=== PATIENT | female | born 1960 | race Caucasian/White ===

== ENCOUNTER → 2017-01-14 | Outpatient (CLI) | payer MEDICARE, MEDICAID ==
[~2017-01-14] MED LIST: ASPI1TAB PO; BENZ5TA PO; BUSP30TA PO; INVE234I IM; LITH300T2 PO; MAGN250T5 PO; MOME50SP; PROP1TAB29 PO; RISP0.5T3 PO; RISP1TAB41 PO; SENN-23 PO; SENN8.6T10 PO; STOO240C PO; TRAZ50TA4 PO; VITA200016 PO
[2017-01-14 12:52] LABS: ALBUMIN 3.9 GM/DL (3.2-5.2); CALCIUM LEVEL 9.3 MG/DL (8.5-10.1); CREATININE FOR GFR 1.05 MG/DL (0.55-1.02); GLOMERULAR FILTRATION RATE 57.7 (>51); PHOSPHORUS LEVEL 3.3 MG/DL (2.5-4.9); POTASSIUM SERUM 4.4 MEQ/L (3.5-5.1)
[2017-01-14 12:54] LABS: LITHIUM LEVEL 0.92 MEQ/L (0.60-1.20)
== END ==
LOC: M WUC 08:36
PROVIDERS: ATTEND Nurse Practitioner Psychiatric/Mental Health
DX: Z79.899 Other long term (current) drug therapy (principal)

== ENCOUNTER 2017-03-01 11:43 | Outpatient (RCR) | payer MEDICARE, MEDICAID | END 2017-03-03 | disposition home or self-care (01) | LOC: M PT 11:43 | PROVIDERS: ATTEND Family Medicine | DX: Z51.89 Encounter for other specified aftercare (principal); M76.32 Iliotibial band syndrome, left leg | CPT/HCPCS: 97161; G8978; G8979 ==

== ENCOUNTER → 2017-03-21 | Outpatient (CLI) | payer MEDICARE, MEDICAID ==
--- NOTE | 2017-03-21 10:41 | REP ---
Clinical: Abdominal pain and constipation. Findings: Lung bases are clear. Visualized heart and pericardium normal. Chronic linear scarring at the right lower lobe noted. Liver, spleen, pancreas, gallbladder, bilateral adrenal glands and kidneys are normal for noncontrast evaluation. Moderate fecal stasis and presumed constipation noted. Normal terminal ileum and appendix identified in the right lower quadrant. No evidence for bowel obstruction or acute inflammatory process. Pelvis demonstrates normal bladder and age-appropriate uterus/right adnexa. 2.8 cm left ovarian cyst identified. No ascites. No obvious adenopathy. Abdominal aorta without aneurysm. 1 cm fat containing periumbilical hernia. Musculoskeletal structures normal for age. Impression: 1. Moderate fecal stasis and constipation noted without obstruction or acute inflammatory process. 2. 2.8 cm left ovarian cysts. 3. 1 cm fat containing periumbilical hernia. Signed by Avery Radford MD 03/21/2017 10:33 A
== END ==
LOC: M LAB 08:34 → M RAD 08:34
PROVIDERS: ATTEND Student in an Organized Health Care Education/Training Program
DX: K59.00 Constipation, unspecified (principal); N83.202 Unspecified ovarian cyst, left side; K42.9 Umbilical hernia without obstruction or gangrene

== ENCOUNTER 2017-03-22 18:13 | Emergency (ER) | payer MEDICARE, MEDICAID ==
[~2017-03-22] VITALS: Ht 165.1 cm; Wt 79.4 kg
[2017-03-22] MEDS ORDERED: FLEET ENEMA PR PRN (19:45)
[2017-03-22 19:48] VITALS: BP 134/76
== END 2017-03-22 20:00 | disposition home or self-care (01) ==
LOC: M ED 18:53
DX: K59.00 Constipation, unspecified (principal); R11.2 Nausea with vomiting, unspecified; R10.84 Generalized abdominal pain; F32.9 Major depressive disorder, single episode, unspecified; F29 Unspecified psychosis not due to a substance or known physiological condition; Z79.82 Long term (current) use of aspirin; Z79.899 Other long term (current) drug therapy; Z88.2 Allergy status to sulfonamides; Z88.8 Allergy status to other drugs, medicaments and biological substances; Z91.040 Latex allergy status; Z91.09 Other allergy status, other than to drugs and biological substances

== ENCOUNTER → 2017-04-03 | Outpatient (RCR) | payer MEDICARE, MEDICAID | END | disposition home or self-care (01) | LOC: M PT 03-07 12:25 | PROVIDERS: ATTEND Family Medicine | DX: Z51.89 Encounter for other specified aftercare (principal); M76.32 Iliotibial band syndrome, left leg | CPT/HCPCS: 97110; 97140; G8978; G8979 ==

== ENCOUNTER → 2017-04-05 | Outpatient (CLI) | payer MEDICARE, MEDICAID ==
--- NOTE | 2017-04-05 14:56 | REP ---
PELVIC ULTRASOUND: Real-time sonographic evaluation of the pelvis is performed utilizing transabdominal and endovaginal technique. The bladder measures 10.8 x 7.8 x 10.0 cm. The uterus measures 8.6 x 2.3 x 4.8 cm. Endometrial stripe measures 5 mm with no endometrial fluid collection. There may be a subtle oval area of increased echogenicity representing a polyp in the endometrial canal measuring 5 x 3 x 5 mm. There are a few tiny calcifications in the lower uterine segment of the uterus. Right ovary measures 1.0 x 0.7 x 1.2 cm and the left ovary 3.6 x 2.3 x 3.4 cm. There is a small cyst in the left ovary measuring 2.7 x 1.8 x 2.7 cm. There is bilateral blood flow seen in the ovaries with duplex Doppler evaluation, with no torsion, RI right ovary 0.54 and left ovary 0.82. IMPRESSION: Endometrial thickness 5 mm with possible endometrial polyp 5 x 3 x 5 mm. This could be further evaluated with sonohysterography. Small cyst left ovary 2.7 x 1.8 x 2.7 cm. Recommend followup ultrasound in 1 year to confirm stability of the left ovarian cyst. Signed by Viral Ball MD 04/05/2017 04:01 P
== END ==
LOC: M RAD 13:58
PROVIDERS: ATTEND Student in an Organized Health Care Education/Training Program
DX: N83.202 Unspecified ovarian cyst, left side (principal); K59.09 Other constipation; E55.9 Vitamin D deficiency, unspecified; M76.32 Iliotibial band syndrome, left leg

== ENCOUNTER 2017-04-30 12:17 | Outpatient (RCR) | payer MEDICARE, MEDICAID ==
[~2017-04-30 12:17] MED LIST changes: +BENZ0.5T PO; -BENZ5TA PO; -MAGN250T5 PO; +MAGN250T6 PO; -RISP1TAB41 PO; +RISP1TAB42 PO; +SENN1TAB10 PO; -SENN8.6T10 PO; +STOO1CAP9 PO; -STOO240C PO; +TRAZ50TA11 PO; -TRAZ50TA4 PO
[2017-08-02] MEDS ORDERED: FISH1000 PO (12:39)
[2017-08-02] MEDS ORDERED: MIRA33504 PO (12:39)
[2017-08-02] MEDS ORDERED: INVE156I IM (12:39)
[2017-08-02] MEDS ORDERED: VITA100067 PO (12:39)
[2017-08-02] MEDS ORDERED: DULC5TAB PO (12:39)
== END 2017-05-03 | disposition home or self-care (01) ==
LOC: M PT 12:17
PROVIDERS: ATTEND Family Medicine
DX: M76.32 Iliotibial band syndrome, left leg (principal); Z51.89 Encounter for other specified aftercare
CPT/HCPCS: 97110; G8978; G8979; G8980

== ENCOUNTER → 2017-05-20 | Outpatient (CLI) | payer MEDICARE, MEDICAID ==
[~2017-05-20] MED LIST changes: +DULC5TAB PO; +FISH1000 PO; +INVE156I IM; +MIRA33504 PO; +VITA100067 PO
== END ==
LOC: M LAB 11:06
PROVIDERS: ATTEND Student in an Organized Health Care Education/Training Program
DX: E78.00 Pure hypercholesterolemia, unspecified (principal)

== ENCOUNTER → 2017-05-28 | Outpatient (CLI) | payer MEDICARE, MEDICAID ==
--- NOTE | 2017-05-28 14:12 | REPMRS ---
Patient History The patient states she has not had a clinical breast exam in over a year. Patient is postmenopausal and has history of skin cancer at age 21. Family history of breast cancer in maternal aunt at age 50 or over and breast cancer in paternal grandmother at age 50 or over. Benign excisional biopsy of the right breast, December 28, 2015. Digital Woman Screen Mammo: May 28, 2017 - Exam #: [id number] Bilateral CC and MLO view(s) were taken. Technologist: Roma Doherty, Technologist Prior study comparison: July 26, 2015, digital woman screen mammo performed at [facility]. FINDINGS: There are scattered fibroglandular densities. There has been no change in the appearance of the mammogram from the prior studies. There is a mild amount of residual fibroglandular tissue which is fairly symmetric. There is no interval development of dominant mass, architectural distortion, or clustered microcalcification suggestive of malignancy. ASSESSMENT: BI-RADS/ACR category 1 mammogram. Negative. Recommendation Routine screening mammogram in 1 year (for women over age 40). This mammogram was interpreted with the aid of an FDA-approved computer-aided dectection system. Electronically Signed By: Viral Ball MD 05/28/17 [id number]
== END ==
LOC: M WHC 13:01
PROVIDERS: ATTEND Hospitalist
DX: Z12.31 Encounter for screening mammogram for malignant neoplasm of breast (principal); Z78.0 Asymptomatic menopausal state

== ENCOUNTER → 2017-06-10 | Outpatient (CLI) | payer MEDICARE, MEDICAID ==
--- NOTE | 2017-06-10 14:48 | REP ---
PELVIC ULTRASOUND: Real-time sonographic evaluation of pelvis performed utilizing transabdominal and endovaginal technique. Bladder measures 10.5 x 5.7 x 9.0 cm. Uterus measures 7.5 x 3.1 x 5.1 cm. Endometrial thickness is 4 mm with possible polyp again seen within the endometrial cavity 5 mm in maximum diameter. There is no endometrial fluid collection. The right measures 2.6 x 0.7 x 2.1 cm and the left ovary measures approximately 4.0 x 2.8 x 3.8 cm. There is a cystic structure in the left ovary measuring 2.7 x 2.5 x 2.9 cm, essentially unchanged compared to the prior exam. Blood flow is seen in each ovary with duplex Doppler evaluation, with no torsion, RI right ovary 0.78 and left ovary 0.62. Tiny amount of free fluid is seen in the right adnexal region. IMPRESSION: Stable exam with no change since the prior study of 04/05/2017. Signed by Viral Ball MD 06/11/2017 08:42 A
== END ==
LOC: M RAD 13:49
PROVIDERS: ATTEND Obstetrics & Gynecology
DX: N83.202 Unspecified ovarian cyst, left side (principal)

== ENCOUNTER → 2017-06-13 | Outpatient (CLI) | payer MEDICARE, MEDICAID | LOC: M SMT 14:01 | PROVIDERS: ATTEND Obstetrics & Gynecology | DX: Z01.419 Encounter for gynecological examination (general) (routine) without abnormal findings (principal); D39.12 Neoplasm of uncertain behavior of left ovary; Z11.51 Encounter for screening for human papillomavirus (HPV); N95.2 Postmenopausal atrophic vaginitis | CPT/HCPCS: 36415; 86304; 87624; G0123 ==

== ENCOUNTER → 2017-06-26 | Outpatient (CLI) | payer MEDICARE, MEDICAID ==
[2017-06-26 14:04] LABS: BASO # 0.1 K/mm3 (0.0-0.2); BASO % 0.7 % (0.0-1.0); EOS # 0.3 K/mm3 (0.0-0.50); EOS % 3.6 % (0.0-3.0); LARGE UNSTAINED CELL # 0.1 K/mm3 (0.0-0.4); LARGE UNSTAINED CELL % 1.2 % (0.0-4.0); LYMPH # 1.4 K/mm3 (1.5-4.5); LYMPH % 14.8 % (24.0-44.0); MEAN CORPUSCULAR HEMOGLOBIN 29.7 pg (27.0-33.0); MEAN CORPUSCULAR HGB CONC 32.3 g/dl (32.0-36.5); MEAN CORPUSCULAR VOLUME 91.9 fl (80.0-96.0); MONO # 0.5 K/mm3 (0.0-0.8); MONO % 5.8 % (0.0-5.0); NEUTROPHILS # 6.6 K/mm3 (1.8-7.7); NEUTROPHILS % 73.9 % (36.0-66.0); PLATELET COUNT, AUTOMATED 329 k/mm3 (150-450); RED CELL DISTRIBUTION WIDTH 12.8 % (11.5-14.5); WHITE BLOOD COUNT 8.9 K/mm3 (4.0-10.0)
[2017-06-26 14:58] LABS: ALBUMIN 4.1 GM/DL (3.2-5.2); ALBUMIN/GLOBULIN RATIO 1.21 (1.00-1.93); ALKALINE PHOSPHATASE 89 U/L (45-117); ALT/SGPT 15 U/L (12-78); ANION GAP 9 MEQ/L (8-16); AST/SGOT 11 U/L (15-37); BILIRUBIN,TOTAL 0.3 MG/DL (0.2-1.0); BLOOD UREA NITROGEN 11 MG/DL (7-18); CALCIUM LEVEL 9.3 MG/DL (8.5-10.1); CARBON DIOXIDE LEVEL 26 MEQ/L (21-32); CHLORIDE LEVEL 107 MEQ/L (98-107); CREATININE FOR GFR 0.94 MG/DL (0.55-1.02); GLOMERULAR FILTRATION RATE > 60.0 (>51); GLUCOSE, FASTING 83 MG/DL (70-105); POTASSIUM SERUM 4.3 MEQ/L (3.5-5.1); SODIUM LEVEL 142 MEQ/L (136-145); TOTAL PROTEIN 7.5 GM/DL (6.4-8.2)
== END ==
LOC: M LAB 13:28
PROVIDERS: ATTEND Student in an Organized Health Care Education/Training Program
DX: K59.9 Functional intestinal disorder, unspecified (principal)

== ENCOUNTER → 2017-08-09 | Outpatient (REF) | payer MEDICARE, MEDICAID ==
[2017-08-09 16:44] LABS: ANION GAP 7 MEQ/L (8-16); BLOOD UREA NITROGEN 12 MG/DL (7-18); CALCIUM LEVEL 9.7 MG/DL (8.5-10.1); CARBON DIOXIDE LEVEL 26 MEQ/L (21-32); CHLORIDE LEVEL 105 MEQ/L (98-107); CREATININE FOR GFR 0.91 MG/DL (0.55-1.02); GLOMERULAR FILTRATION RATE > 60.0 (>51); GLUCOSE, FASTING 108 MG/DL (70-105); POTASSIUM SERUM 4.1 MEQ/L (3.5-5.1); SODIUM LEVEL 138 MEQ/L (136-145)
[2017-08-09 16:45] LABS: LITHIUM LEVEL 0.78 MEQ/L (0.60-1.20)
== END ==
LOC: M SFHCPLAZ 14:16
DX: F31.30 Bipolar disorder, current episode depressed, mild or moderate severity, unspecified (principal); Z23 Encounter for immunization
CPT/HCPCS: 36415; 80048; 80178; 90471; 90686; G0463

== ENCOUNTER 2017-08-14 10:34 | Day surgery (SDC) | payer MEDICARE, MEDICAID ==
[~2017-08-14] VITALS: Ht 166.4 cm; Wt 77.1 kg
[~2017-08-14 10:34] MED LIST changes: +BSS with VANC/TOB/EPI for EYE CASES IR ONE; +CYCLOPENTOLATE 2% OPHTH SOLN 2ML BTL OS ONE; +LIDOCAINE 3.5 % 1ML OPHTH TOPICAL GEL OU ONE; +MIDAZOLAM INJ 2 MG/2 ML VIAL (J2250) As Ordered ONE; +OFLOXACIN 0.3 % (OCUFLOX) OPTH SOL 5ML OS ONE; +PHENYLEPHRINE 2.5% OPHTH SOL 2ML OS ONE; +TROPICAMIDE 1% OPHTH SOLN 2ML OS ONE; +fentaNYL 100 MCG/2 ML INJECTION (J3010) As Ordered ONE
[2017-08-14] MEDS ORDERED: LR 500 ML IV ONE (10:45)
[2017-08-14] MEDS ORDERED: LIDOCAINE 1% MDV 20ML VIAL SC ONE (10:45)
[2017-08-14] MEDS ORDERED: HEALON DUET (HEALON 10MG/ML 0.55ML & HEALON ENDOCOAT 30MG/ML 0.85ML) As Ordered ONE (12:02)
[2017-08-14] MEDS ORDERED: TRIAMCINOLONE PRES FR 40 MG/ML 1ML(TRIESENCE)(OR EYE ONLY)(J3300 PER 1MG) As Ordered ONE (12:02)
[2017-08-14] MEDS ORDERED: MOXIFLOXACIN IN BSS 0.25MG/0.25ML INTRACAMERAL INJ (OR EYE ONLY)(J2280) As Ordered ONE (12:02)
[2017-08-14] MEDS ORDERED: LIDOCAINE 1% SDV 5 ML VIAL As Ordered ONE (12:02)
[2017-08-14 14:00] VITALS: BP 121/72
--- NOTE | 2017-08-14 22:11 | RO ---
DATE OF PROCEDURE: 08/14/2017 PREPROCEDURE DIAGNOSIS: Cataract of left eye. POSTPROCEDURE DIAGNOSIS: Cataract of left eye. PROCEDURE: Femtosecond laser and phacoemulsification of the intraocular lens with lens implantation left eye. Intraocular lens used was Hoya, model 250, power 12 diopters. SURGEON: Joey Martin MD MAIL LIST PROCESSOR: None. ANESTHESIA: Local IV standby. FINDINGS: Cataract of left eye. COMPLICATIONS: None. DESCRIPTION OF PROCEDURE: The patient was brought to the operating room and laid in supine position. A lid speculum was placed, and patient was brought under the femtosecond laser. After the satisfactory placement of the patient interface, primary incision, secondary incision, and arcuate incisions with lens fragmentation was done without any complication per plan. The patients interface was then removed and lid speculum removed. Patient was placed under the microscope. The eye was prepped and draped in a sterile fashion for ophthalmic surgery. Lid speculum was placed. The secondary incision was opened, and EndoCoat was injected into the anterior chamber. The temporal clear corneal incision was then opened and capsulorrhexis removed, followed by hydrodissection. This was followed by phacoemulsification of the lens within the capsular bag. Cortical material was then aspirated, and Healon was injected into the capsular bag. Intraocular lens was then placed. Excess Healon was aspirated. Wound was hydrated. The lid speculum was removed, and patient was returned to the recovery room in stable condition.
== END 2017-08-14 14:05 | disposition home or self-care (01) ==
LOC: M SDC 10:34
PROVIDERS: ATTEND Ophthalmology
DX: H26.9 Unspecified cataract (principal); K59.00 Constipation, unspecified; R19.7 Diarrhea, unspecified; A60.00 Herpesviral infection of urogenital system, unspecified; C44.90 Unspecified malignant neoplasm of skin, unspecified; F41.9 Anxiety disorder, unspecified; F31.9 Bipolar disorder, unspecified; G43.909 Migraine, unspecified, not intractable, without status migrainosus; F29 Unspecified psychosis not due to a substance or known physiological condition; Z88.2 Allergy status to sulfonamides; Z88.8 Allergy status to other drugs, medicaments and biological substances; Z91.040 Latex allergy status; Z91.048 Other nonmedicinal substance allergy status; Z79.899 Other long term (current) drug therapy; Z79.82 Long term (current) use of aspirin
CPT/HCPCS: 66984; J2250; J2280; J3010; J3300; V2632

== ENCOUNTER 2017-09-11 07:56 | Day surgery (SDC) | payer MEDICARE, MEDICAID ==
[~2017-09-11] VITALS: Ht 165.1 cm; Wt 75.7 kg
[~2017-09-11 07:56] MED LIST changes: -BSS with VANC/TOB/EPI for EYE CASES IR ONE; -CYCLOPENTOLATE 2% OPHTH SOLN 2ML BTL OS ONE; -LIDOCAINE 3.5 % 1ML OPHTH TOPICAL GEL OU ONE; -MIDAZOLAM INJ 2 MG/2 ML VIAL (J2250) As Ordered ONE; -OFLOXACIN 0.3 % (OCUFLOX) OPTH SOL 5ML OS ONE; -PHENYLEPHRINE 2.5% OPHTH SOL 2ML OS ONE; -TROPICAMIDE 1% OPHTH SOLN 2ML OS ONE; -fentaNYL 100 MCG/2 ML INJECTION (J3010) As Ordered ONE
[2017-09-11] MEDS ORDERED: PROPOFOL 200 MG/20 ML VIAL As Ordered ONE ×2 (08:03→09:18)
[2017-09-11] MEDS ORDERED: LIDOCAINE 2% INJ 100 MG/5 ML SDV (FOR ANES.) As Ordered ONE (08:03)
[2017-09-11] MEDS ORDERED: NS 1,000 ML IV ONE (08:15)
--- NOTE | 2017-09-11 09:32 | ROOR ---
Patient Name: Chey Elaine Procedure Date: 09/11/2017 9:02 AM Date of : 1960 Age: 56 Room: [facility] Gender: Female Note Status: Finalized Procedure: Total Colonoscopy to cecum + Biopsy Polypectomy Indications: Screening for colorectal malignant neoplasm Providers: Nick Márquez MD Referring MD: Mehran Garcia Requesting Provider: Medicines: Monitored Anesthesia Care Complications: No immediate complications. Procedure: Pre-Anesthesia Assessment: - The heart rate, respiratory rate, oxygen saturations, blood pressure, adequacy of pulmonary ventilation, and response to care were monitored throughout the procedure. The Colonoscope was introduced through the anus and advanced to the cecum, identified by appendiceal orifice and ileocecal valve. The colonoscopy was performed without difficulty. The patient tolerated the procedure well. The quality of the bowel preparation was good. Findings: The perianal and digital rectal examinations were normal. Non-bleeding internal hemorrhoids were found during retroflexion. The hemorrhoids were Grade I (internal hemorrhoids that do not prolapse). Scattered small-mouthed diverticula were found in the recto-sigmoid colon, sigmoid colon and descending colon. A small polyp was found in the ascending colon. The polyp was sessile. The polyp was removed with a jumbo cold forceps. Resection and retrieval were complete. The exam was otherwise without abnormality on direct and retroflexion views. Impression: - Non-bleeding internal hemorrhoids. - Diverticulosis in the recto-sigmoid colon, in the sigmoid colon and in the descending colon. - One small polyp in the ascending colon, removed with a jumbo cold forceps. Resected and retrieved. - The examination was otherwise normal on direct and retroflexion views. - The exam was otherwise normal to the cecum. Recommendation: - Patient has a contact number available for emergencies. The signs and symptoms of potential delayed complications were discussed with the patient. Return to normal activities tomorrow. Written discharge instructions were provided to the patient. - High fiber diet. - Discharge patient to home. - Continue present medications. - Await pathology results. - Telephone GI clinic for pathology results in 1 week. - Repeat colonoscopy in 10 years for screening purposes. - Return to referring physician. - The findings and recommendations were discussed with the patient's family. Nick Márquez MD Nick Márquez MD 09/11/2017 9:31:39 AM This report has been signed electronically. Number of Addenda: 0 Note Initiated On: 09/11/2017 9:02 AM Estimated Blood Loss: Estimated blood loss: none.
[2017-09-11 09:43] VITALS: BP 133/74
== END 2017-09-11 10:12 | disposition home or self-care (01) ==
LOC: M OPP 07:56
PROVIDERS: ATTEND Internal Medicine Gastroenterology
DX: Z12.11 Encounter for screening for malignant neoplasm of colon (principal); D12.2 Benign neoplasm of ascending colon; K64.0 First degree hemorrhoids; K57.30 Diverticulosis of large intestine without perforation or abscess without bleeding; K59.00 Constipation, unspecified; L85.3 Xerosis cutis; F41.9 Anxiety disorder, unspecified; F31.9 Bipolar disorder, unspecified; Z78.0 Asymptomatic menopausal state; Z85.828 Personal history of other malignant neoplasm of skin; Z88.2 Allergy status to sulfonamides; Z88.8 Allergy status to other drugs, medicaments and biological substances; Z91.040 Latex allergy status; Z88.3 Allergy status to other anti-infective agents; Z79.82 Long term (current) use of aspirin; Z79.899 Other long term (current) drug therapy; Z80.1 Family history of malignant neoplasm of trachea, bronchus and lung; Z80.3 Family history of malignant neoplasm of breast

== ENCOUNTER → 2017-12-30 | Outpatient (CLI) | payer MEDICARE, MEDICAID ==
[2017-12-30 09:31] LABS: CHOLESTEROL LEVEL 196 MG/DL (<200); CHOLESTEROL RISK RATIO 2.512 (<5); HDL CHOLESTEROL 78 MG/DL (>40); LDL CHOLESTEROL 100.6 MG/DL (<100); NON-HDL-C 118 MG/DL; TRIGLYCERIDES LEVEL 87 MG/DL (<150)
[2017-12-30 09:54] LABS: ESTIMATED AVERAGE GLUCOSE 100 MG/DL (60-110); HEMOGLOBIN A1c 5.1 %
[2017-12-30 10:17] LABS: PROLACTIN 197.3 NG/ML
== END ==
LOC: M LAB 08:21
DX: Z51.81 Encounter for therapeutic drug level monitoring (principal); Z79.899 Other long term (current) drug therapy

== ENCOUNTER → 2017-12-30 | Outpatient (CLI) | payer MEDICARE, MEDICAID ==
[2017-12-30 09:35] LABS: LITHIUM LEVEL 1.47 MEQ/L (0.60-1.20)
[2017-12-30 09:38] LABS: TOTAL 25(OH) VITAMIN D 41.2 NG/ML (30.0-100.0)
[2017-12-30 09:55] LABS: ESTIMATED AVERAGE GLUCOSE 105 MG/DL (60-110); HEMOGLOBIN A1c 5.3 %
== END ==
LOC: M LAB 08:18
DX: F31.9 Bipolar disorder, unspecified (principal); E55.9 Vitamin D deficiency, unspecified; Z51.81 Encounter for therapeutic drug level monitoring; Z79.899 Other long term (current) drug therapy
CPT/HCPCS: 80178

== ENCOUNTER → 2018-02-17 | Outpatient (CLI) | payer MEDICARE, MEDICAID ==
[2018-02-17 10:58] LABS: LITHIUM LEVEL 1.01 MEQ/L (0.60-1.20)
== END ==
LOC: M LAB 09:52
DX: Z51.81 Encounter for therapeutic drug level monitoring (principal); Z79.899 Other long term (current) drug therapy
CPT/HCPCS: 80178

== ENCOUNTER → 2018-06-16 | Outpatient (CLI) | payer MEDICARE, MEDICAID ==
[2018-06-16 09:37] LABS: HEMATOCRIT 38.7 % (36.0-47.0); HEMOGLOBIN 12.6 g/dl (12.0-15.5); MEAN CORPUSCULAR HEMOGLOBIN 29.5 pg (27.0-33.0); MEAN CORPUSCULAR HGB CONC 32.6 g/dl (32.0-36.5); MEAN CORPUSCULAR VOLUME 90.6 fl (80.0-96.0); PLATELET COUNT, AUTOMATED 320 10^3/uL (150-450); RED BLOOD COUNT 4.27 10^6/uL (4.00-5.40); RED CELL DISTRIBUTION WIDTH 12.5 % (11.5-14.5); WHITE BLOOD COUNT 8.8 10^3/uL (4.0-10.0)
[2018-06-16 11:15] LABS: ALBUMIN 3.8 GM/DL (3.2-5.2); ALBUMIN/GLOBULIN RATIO 1.12 (1.00-1.93); ALKALINE PHOSPHATASE 83 U/L (45-117); ALT/SGPT 18 U/L (12-78); ANION GAP 6 MEQ/L (8-16); AST/SGOT 14 U/L (7-37); BILIRUBIN,TOTAL 0.4 MG/DL (0.2-1.0); BLOOD UREA NITROGEN 13 MG/DL (7-18); CALCIUM LEVEL 9.7 MG/DL (8.5-10.1); CARBON DIOXIDE LEVEL 27 MEQ/L (21-32); CHLORIDE LEVEL 110 MEQ/L (98-107); CHOLESTEROL LEVEL 209 MG/DL (<200); CHOLESTEROL RISK RATIO 3.166 (<5); CREATININE FOR GFR 1.17 MG/DL (0.55-1.30); GLOMERULAR FILTRATION RATE 50.8 (>51); GLUCOSE, FASTING 117 MG/DL (70-100); HDL CHOLESTEROL 66 MG/DL (>40); NON-HDL-C 143 MG/DL; PHOSPHORUS LEVEL 3.4 MG/DL (2.5-4.9); POTASSIUM SERUM 4.3 MEQ/L (3.5-5.1); SODIUM LEVEL 143 MEQ/L (136-145); TOTAL PROTEIN 7.2 GM/DL (6.4-8.2); TRIGLYCERIDES LEVEL 165 MG/DL (<150)
[2018-06-16 11:30] LABS: LITHIUM LEVEL 0.97 MEQ/L (0.60-1.20)
== END ==
LOC: M LAB 08:54
DX: Z79.899 Other long term (current) drug therapy (principal)
CPT/HCPCS: 80178

== ENCOUNTER → 2018-08-25 | Outpatient (CLI) | payer MEDICARE, MEDICAID ==
[2018-08-25 12:42] LABS: ANION GAP 6 MEQ/L (8-16); BLOOD UREA NITROGEN 16 MG/DL (7-18); CARBON DIOXIDE LEVEL 25 MEQ/L (21-32); CHLORIDE LEVEL 110 MEQ/L (98-107); CREATININE FOR GFR 1.03 MG/DL (0.55-1.30); GLOMERULAR FILTRATION RATE 58.8 (>51); GLUCOSE, FASTING 96 MG/DL (70-100); POTASSIUM SERUM 4.5 MEQ/L (3.5-5.1); SODIUM LEVEL 141 MEQ/L (136-145)
== END ==
LOC: M LAB 11:29
DX: R73.09 Other abnormal glucose (principal)
CPT/HCPCS: 80048

== ENCOUNTER → 2018-11-24 | Outpatient (CLI) | payer MEDICARE, MEDICAID ==
[~2018-11-24] MED LIST changes: -PROP1TAB29 PO; +PROP20TA72 PO; +TRAZ-160 PO; -TRAZ50TA11 PO
[2018-11-24 11:26] LABS: CHOLESTEROL RISK RATIO 2.942 (<5); LITHIUM LEVEL 0.94 MEQ/L (0.60-1.20); THYROID STIMULATING HORMONE 2.32 uIU/ML (0.358-3.740)
[2018-11-24 11:28] LABS: PROLACTIN 149.2 NG/ML; TOTAL 25(OH) VITAMIN D 29.9 NG/ML (30.0-100.0)
[2018-11-24 11:30] LABS: HEMOGLOBIN A1c 5.1 %
== END ==
LOC: M LAB 10:24
PROVIDERS: ATTEND Nurse Practitioner Psychiatric/Mental Health
DX: Z79.899 Other long term (current) drug therapy (principal)
CPT/HCPCS: 36415; 80061; 80178; 82306; 83036; 84146; 84443; 90471; 90715; G0463

== ENCOUNTER → 2018-12-18 | Outpatient (CLI) | payer MEDICARE, MEDICAID ==
[~2018-12-18] MED LIST changes: +PROHANCE 279.3MG/ML 15ML VIAL (A9576) As Ordered ONE
--- NOTE | 2018-12-18 14:42 | REP ---
MR BRAIN WITHOUT AND WITH CONTRAST: HISTORY: Hyperprolactinemia. CONTRAST: ProHance 7 mL. There are no areas of abnormal signal intensity in the brain. There is no intraparenchymal hemorrhage, infarct, mass, or midline shift. There is no abnormal enhancement. The ventricular system is normal in appearance. There is no extracerebral collection. The pituitary gland is normal in size and signal intensity. The pituitary gland measures 7 mm in height. There is homogeneous enhancement with contrast. The infundibulum is midline. The cavernous sinuses, optic chiasm, and hypothalamus are normal in appearance. The sinuses are clear. IMPRESSION: There is no intracranial lesion. Electronically Signed by Tom Romano MD 12/18/2018 02:44 P
== END ==
LOC: M RAD 11:48
PROVIDERS: ATTEND Student in an Organized Health Care Education/Training Program
DX: E22.1 Hyperprolactinemia (principal)
CPT/HCPCS: 70553; A9576

== ENCOUNTER → 2019-06-08 | Outpatient (CLI) | payer MEDICARE, MEDICAID ==
[~2019-06-08] MED LIST changes: -ASPI1TAB PO; +ASPI81TA26 PO; -BENZ0.5T PO; +BENZ0.5T23 PO; -PROHANCE 279.3MG/ML 15ML VIAL (A9576) As Ordered ONE; -TRAZ-160 PO; +TRAZ-252 PO
[2019-06-08 10:40] LABS: HEMOGLOBIN A1c 5.4 %
[2019-06-08 10:47] LABS: ALBUMIN 3.7 GM/DL (3.2-5.2); CALCIUM LEVEL 9.5 MG/DL (8.5-10.1); CHOLESTEROL RISK RATIO 2.936 (<5); CREATININE FOR GFR 1.09 MG/DL (0.55-1.30); GLOMERULAR FILTRATION RATE 54.9 (>51); LITHIUM LEVEL 1.01 MEQ/L (0.60-1.20); PHOSPHORUS LEVEL 3.6 MG/DL (2.5-4.9); POTASSIUM SERUM 4.4 MEQ/L (3.5-5.1); THYROID STIMULATING HORMONE 1.76 uIU/ML (0.358-3.740)
[2019-06-08 11:52] LABS: TOTAL 25(OH) VITAMIN D 35.5 NG/ML (30.0-100.0)
[2019-06-08 11:53] LABS: PROLACTIN 162.5 NG/ML
== END ==
LOC: M LAB 09:36
PROVIDERS: ATTEND Nurse Practitioner Psychiatric/Mental Health
DX: Z79.899 Other long term (current) drug therapy (principal)

== ENCOUNTER → 2019-06-23 | Outpatient (REF) | payer MEDICARE, MEDICAID ==
[2019-06-26 14:50] LABS: HPV HYBRID CAPTURE II Negative (Negative)
== END ==
LOC: M LAB REF 19:36
PROVIDERS: ATTEND Obstetrics & Gynecology
DX: Z12.4 Encounter for screening for malignant neoplasm of cervix (principal)
CPT/HCPCS: 36415; 86304; 87624; G0123

== ENCOUNTER → 2019-06-23 | Outpatient (CLI) | payer MEDICARE, MEDICAID | LOC: M SMT 15:28 | PROVIDERS: ATTEND Obstetrics & Gynecology | DX: D39.12 Neoplasm of uncertain behavior of left ovary (principal) ==

== ENCOUNTER → 2019-07-28 | Outpatient (CLI) | payer MEDICARE, MEDICAID ==
--- NOTE | 2019-07-28 14:54 | REPMRS ---
Patient History The patient states she has not had a clinical breast exam in over a year. Patient is postmenopausal, has history of other cancer at age 21, and had first child at age 32. Family history of breast cancer at age 50 or over in maternal aunt, breast cancer at age 50 or over in paternal grandmother. Benign excisional biopsy of the right breast, December 28, 2015. 3D TOMOSYNTHESIS WAS PERFORMED. The [facility] lifetime risk for breast cancer is 19.7%. Digital Woman Screen Mammo: July 28, 2019 - Exam #: [id number] Bilateral CC and MLO view(s) were taken. Technologist: Padmini Hobbs, Technologist Prior study comparison: July 03, 2018, bilateral digital woman screen mammo performed at [facility]. May 28, 2017, digital woman screen mammo performed at [facility]. FINDINGS: The breast tissue is heterogeneously dense. This may lower the sensitivity of mammography. There has been no change in the appearance of the mammogram from the prior studies. There is a moderate amount of residual fibroglandular tissue which is fairly symmetric. There is no interval development of dominant mass, areas of architectural distortion, or clustered microcalcification typical of malignancy. Assessment: BI-RADS/ACR category 1 mammogram. Negative Mammogram. Recommendation Routine screening mammogram in 1 year (for women over age 40). This mammogram was interpreted with the aid of an FDA-approved computer-aided dectection system. Electronically Signed By: Viral Ball MD 07/28/19 [id number]
--- NOTE | 2019-07-30 15:44 | DEXA ---
AP SPINE L1 - L4 1.205 0.1 1.2 LT FEMUR TOTAL 1.063 0.4 1.3 LT NECK 0.972 -0.5 0.7 RT FEMUR TOTAL 1.012 0.0 0.9 RT NECK 0.948 -0.6 0.5 TOTAL BODY TOTAL OTHER COMMENTS: Normal bone densitometry of the spine and hips. FOLLOW-UP: Recommendation for the next bone density exam: 5 years. MERRY
== END ==
LOC: M WHC 13:57
PROVIDERS: ATTEND Student in an Organized Health Care Education/Training Program
DX: Z12.31 Encounter for screening mammogram for malignant neoplasm of breast (principal); E22.1 Hyperprolactinemia; Z78.0 Asymptomatic menopausal state; Z85.9 Personal history of malignant neoplasm, unspecified

== ENCOUNTER → 2019-08-27 | Outpatient (CLI) | payer MEDICARE, MEDICAID ==
--- NOTE | 2019-08-27 16:52 | REP ---
HISTORY: Left ovarian cyst was seen on prior exam of 07/03/2018. The cyst measured 2.9 cm. The patient complains of pelvic pain today. Secondary to the patient's complaints of pelvic pain bilateral ovarian Doppler was obtained. This is a transvesical exam only. There was no transvaginal imaging. The uterus is essentially unchanged in size, shape and echo pattern and today measures 8.2 x 3.4 x 4.7 cm. The endometrial echo complex is within normal limits measuring 5 mm in its greatest thickness. The right ovary measured 2.5 x 1.8 x 2.2 cm and is within normal limits with an RI of 0.35. The left ovary measures 4.1 x 2.7 x 3.9 cm. In the substance of the left ovary there is a 3.3 x 2.1 x 3.2 cm sized anechoic structure which exhibits posterior wall enhancement and increased through transmission. This is consistent with a simple cyst. The left ovarian RI is 0.4. The urinary bladder measures 10 x 7 x 9 cm. IMPRESSION: Left ovarian cyst as described above. A 2 month followup examination is recommended to ensure resolution. Electronically Signed by Bernardo Adhikari DO 08/27/2019 04:59 P
== END ==
LOC: M RAD 12:36
PROVIDERS: ATTEND Obstetrics & Gynecology
DX: N83.202 Unspecified ovarian cyst, left side (principal); D39.12 Neoplasm of uncertain behavior of left ovary

== ENCOUNTER → 2019-10-23 | Outpatient (CLI) | payer MEDICARE, MEDICAID ==
[2019-10-23 11:54] LABS: HEMATOCRIT 38.9 % (36.0-47.0); HEMOGLOBIN 12.1 g/dl (12.0-15.5); MEAN CORPUSCULAR HEMOGLOBIN 29.2 pg (27.0-33.0); MEAN CORPUSCULAR HGB CONC 31.1 g/dl (32.0-36.5); PLATELET COUNT, AUTOMATED 329 10^3/uL (150-450); RED BLOOD COUNT 4.14 10^6/uL (4.00-5.40); WHITE BLOOD COUNT 7.7 10^3/uL (4.0-10.0)
[2019-10-23 12:13] LABS: HEMOGLOBIN A1c 5.6 %
[2019-10-23 12:32] LABS: ALT/SGPT 17 U/L (12-78); BILIRUBIN,TOTAL 0.4 MG/DL (0.2-1.0); BLOOD UREA NITROGEN 12 MG/DL (7-18); CALCIUM LEVEL 9.7 MG/DL (8.5-10.1); CARBON DIOXIDE LEVEL 26 MEQ/L (21-32); CHLORIDE LEVEL 108 MEQ/L (98-107); CREATININE FOR GFR 0.97 MG/DL (0.55-1.30); GLOMERULAR FILTRATION RATE > 60.0 (>51); GLUCOSE, FASTING 100 MG/DL (70-100); LITHIUM LEVEL 0.92 MEQ/L (0.60-1.20); PHOSPHORUS LEVEL 3.4 MG/DL (2.5-4.9); POTASSIUM SERUM 4.1 MEQ/L (3.5-5.1); PROLACTIN 111.9 NG/ML; SODIUM LEVEL 139 MEQ/L (136-145); THYROXINE (T4) 7.3 UG/DL (4.5-12.0); TOTAL 25(OH) VITAMIN D 39.2 NG/ML (30.0-100.0); TOTAL PROTEIN 7.1 GM/DL (6.4-8.2); TOTAL T3 96.1 NG/DL (60.0-181.0)
== END ==
LOC: M LAB 11:06
PROVIDERS: ATTEND Nurse Practitioner Psychiatric/Mental Health
DX: Z79.899 Other long term (current) drug therapy (principal); F31.9 Bipolar disorder, unspecified

== ENCOUNTER → 2020-01-08 | Outpatient (REF) | payer MEDICARE, MEDICAID ==
[2020-01-11 11:07] LABS: HEPATITIS B SURFACE ANTIBODY NEGATIVE (POSITIVE); HEPATITIS B SURFACE ANTIGEN NEGATIVE (NEGATIVE); HEPATITIS C VIRUS ABY INDEX < 0.0 INDEX (<0.8)
== END ==
LOC: M SFHCPLAZ 12:45
PROVIDERS: ATTEND Family Medicine
DX: A09 Infectious gastroenteritis and colitis, unspecified (principal); Z23 Encounter for immunization; Z29.8 Encounter for other specified prophylactic measures
CPT/HCPCS: 86704; 86706; 86803; 87340; 90471; 90632; 90713; G0463

== ENCOUNTER → 2020-05-09 | Outpatient (REF) | payer MEDICARE, MEDICAID ==
[2020-05-09 12:01] LABS: CHOLESTEROL RISK RATIO 3.677 (<5)
[2020-05-09 17:06] LABS: LITHIUM LEVEL 0.66 MEQ/L (0.60-1.20)
[2020-05-09 19:12] LABS: HEMOGLOBIN A1c 5.6 %
== END ==
LOC: M SFHCPLAZ 09:26
PROVIDERS: ATTEND Family Medicine
DX: Z13.220 Encounter for screening for lipoid disorders (principal); Z13.1 Encounter for screening for diabetes mellitus; Z51.81 Encounter for therapeutic drug level monitoring; E78.00 Pure hypercholesterolemia, unspecified

== ENCOUNTER → 2020-09-08 | Outpatient (CLI) | payer MEDICARE, MEDICAID ==
--- NOTE | 2020-09-08 14:48 | REPMRS ---
Patient History The patient states she has not had a clinical breast exam in over a year. Family history of breast cancer at age 50 or over in maternal aunt, breast cancer at age 50 or over in paternal grandmother. Benign excisional biopsy of the right breast, December 28, 2015. 3D TOMOSYNTHESIS WAS PERFORMED. The [facility] lifetime risk for breast cancer is 19.1%. Volpara breast density b. Digital Woman Screen Mammo: September 08, 2020 - Exam #: [id number] Bilateral CC and MLO view(s) were taken. Technologist: Yumiko Cobb Technologist Prior study comparison: July 28, 2019, bilateral digital woman screen mammo performed at [facility]. July 03, 2018, bilateral digital woman screen mammo performed at [facility]. FINDINGS: There are scattered fibroglandular densities. There has been no change in the appearance of the mammogram from the prior studies. There is a mild amount of residual fibroglandular tissue which is fairly symmetric. There is no interval development of dominant mass, architectural distortion, or clustered microcalcification suggestive of malignancy. Assessment: BI-RADS/ACR category 1 mammogram. Negative Mammogram. Recommendation Routine screening mammogram in 1 year (for women over age 40). This mammogram was interpreted with the aid of an FDA-approved computer-aided dectection system. Electronically Signed By: Viral Ball MD 09/08/20 [id number]
== END ==
LOC: M WHC 12:51
PROVIDERS: ATTEND Family Medicine
DX: Z12.31 Encounter for screening mammogram for malignant neoplasm of breast (principal); N64.89 Other specified disorders of breast; Z80.3 Family history of malignant neoplasm of breast

== ENCOUNTER → 2020-11-01 | Outpatient (REF) | payer MEDICARE, MEDICAID ==
[~2020-11-01] MED LIST changes: +RISP-7 PO; -RISP0.5T3 PO; -STOO1CAP9 PO; +STOO240C PO
[2020-11-01 16:24] LABS: CALCIUM LEVEL 9.7 MG/DL (8.8-10.2); CREATININE FOR GFR 1.21 MG/DL (0.55-1.30); GLOMERULAR FILTRATION RATE 48.3 (>45); LITHIUM LEVEL 0.84 MEQ/L (0.60-1.20); POTASSIUM SERUM 4.6 MEQ/L (3.5-5.1)
== END ==
LOC: M SFHCPLAZ 14:32
PROVIDERS: ATTEND Family Medicine
DX: F31.9 Bipolar disorder, unspecified (principal)
CPT/HCPCS: 36415; 80048; 80178; G0463

== ENCOUNTER → 2020-12-13 | Outpatient (CLI) | payer MEDICARE, MEDICAID ==
[2020-12-13 14:42] LABS: ALBUMIN 4.2 GM/DL (3.2-5.2); BILIRUBIN,TOTAL 0.3 MG/DL (0.2-1.0); CALCIUM LEVEL 9.7 MG/DL (8.8-10.2); CHOLESTEROL RISK RATIO 3.292 (<5); CREATININE FOR GFR 1.16 MG/DL (0.55-1.30); GLOMERULAR FILTRATION RATE 50.7 (>45); LITHIUM LEVEL 0.79 MEQ/L (0.60-1.20); PHOSPHORUS LEVEL 3.7 MG/DL (2.5-4.9); POTASSIUM SERUM 4.5 MEQ/L (3.5-5.1); THYROID STIMULATING HORMONE 2.57 uIU/ML (0.358-3.740); TOTAL PROTEIN 7.2 GM/DL (6.4-8.2)
[2020-12-13 15:33] LABS: HEMATOCRIT 39.1 % (36.0-47.0); MEAN CORPUSCULAR HEMOGLOBIN 28.6 pg (27.0-33.0); MEAN CORPUSCULAR HGB CONC 30.7 g/dl (32.0-36.5); MEAN CORPUSCULAR VOLUME 93.1 fl (80.0-96.0); PLATELET COUNT, AUTOMATED 350 10^3/uL (150-450); WHITE BLOOD COUNT 9.3 10^3/uL (4.0-10.0)
[2020-12-13 15:39] LABS: TOTAL 25(OH) VITAMIN D 38.4 NG/ML (30.0-100.0)
== END ==
LOC: M PLALAB 10:38
PROVIDERS: ATTEND Nurse Practitioner Psychiatric/Mental Health
DX: F31.9 Bipolar disorder, unspecified (principal); Z79.899 Other long term (current) drug therapy

== ENCOUNTER → 2020-12-30 | Outpatient (CLI) | payer MEDICARE, MEDICAID ==
--- NOTE | 2020-12-30 14:23 | REP ---
INDICATION: N83.202 LT OVARIAN CYST. COMPARISON: Comparison pelvic sonography August 27, 2019.. TECHNIQUE: Transabdominal scanning is performed. Patient declined transvaginal imaging. Exam quality was inhibited some degree by overlying bowel gas. FINDINGS: Uterine dimensions are normal at 8.4 x 3.2 x 4.7 cm. Endometrial echo is 0.4 cm thick and centrally placed. No free fluid is seen in the cul-de-sac. Visualized bladder pete are smooth. Uterine texture is somewhat heterogeneous. Visualized urinary bladder pete are smooth. Calculated bladder volume 197 mL. The right ovary has dimensions of 2.8 x 0.7 x 1.8 cm. The left ovary dimensions are normal as well at 0.9 x 0.6 x 1.2 cm. No evidence of ovarian cyst today. IMPRESSION: No abnormality noted.. <Electronically signed by Phong Haile > 12/30/20 [id number]
== END ==
LOC: M WHC 10:48
PROVIDERS: ATTEND Obstetrics & Gynecology
DX: Z87.42 Personal history of other diseases of the female genital tract (principal)

== ENCOUNTER → 2021-07-04 | Outpatient (CLI) | payer MEDICARE, MEDICAID ==
[2021-07-04 14:05] LABS: HEMOGLOBIN A1c 5.5 %
[2021-07-04 14:15] LABS: CHOLESTEROL RISK RATIO 2.5 (<5); LITHIUM LEVEL 0.66 MEQ/L (0.60-1.20)
== END ==
LOC: M PLALAB 10:46
PROVIDERS: ATTEND Family Medicine
DX: Z13.1 Encounter for screening for diabetes mellitus (principal); E55.9 Vitamin D deficiency, unspecified; F31.9 Bipolar disorder, unspecified; Z13.220 Encounter for screening for lipoid disorders; Z79.899 Other long term (current) drug therapy

== ENCOUNTER → 2022-07-24 | Outpatient (CLI) | payer MEDICARE, MEDICAID ==
[~2022-07-24] MED LIST changes: -MOME50SP; +NASO50SP3
[2022-07-24 14:22] LABS: HEMOGLOBIN A1c 5.4 %
[2022-07-24 14:59] LABS: CREATININE FOR GFR 1.03 MG/DL (0.55-1.30)
[2022-07-24 15:00] LABS: ALBUMIN 4.3 GM/DL (3.2-5.2); BILIRUBIN,TOTAL 0.5 MG/DL (0.2-1.0); CHOLESTEROL RISK RATIO 3.028 (<5); LITHIUM LEVEL 0.47 MEQ/L (0.60-1.20); THYROID STIMULATING HORMONE 1.64 uIU/ML (0.358-3.740); TOTAL PROTEIN 7.7 GM/DL (6.4-8.2)
[2022-07-24 15:24] LABS: PROLACTIN 86.5 NG/ML
== END ==
LOC: M PLALAB 10:41
PROVIDERS: ATTEND Student in an Organized Health Care Education/Training Program
DX: E55.9 Vitamin D deficiency, unspecified (principal); F31.9 Bipolar disorder, unspecified; E22.1 Hyperprolactinemia; Z13.220 Encounter for screening for lipoid disorders; Z13.29 Encounter for screening for other suspected endocrine disorder; Z13.1 Encounter for screening for diabetes mellitus; Z79.899 Other long term (current) drug therapy

== ENCOUNTER → 2022-10-12 | Outpatient (CLI) | payer MEDICARE, MEDICAID | LOC: M WHC 14:04 | PROVIDERS: ATTEND Student in an Organized Health Care Education/Training Program | DX: Z12.31 Encounter for screening mammogram for malignant neoplasm of breast (principal) ==

== ENCOUNTER → 2023-04-03 | Outpatient (CLI) | payer MEDICARE, MEDICAID ==
[~2023-04-03] MED LIST changes: +BENZ0.5T2 PO; -BENZ0.5T23 PO
[2023-04-03 13:30] LABS: HEMATOCRIT 34.4 % (36.0-47.0); HEMOGLOBIN 10.9 g/dl (12.0-15.5); MEAN CORPUSCULAR HEMOGLOBIN 27.5 pg (27.0-33.0); MEAN CORPUSCULAR HGB CONC 31.7 g/dl (32.0-36.5); MEAN CORPUSCULAR VOLUME 86.9 fl (80.0-96.0); PLATELET COUNT, AUTOMATED 368 10^3/uL (150-450); RED BLOOD COUNT 3.96 10^6/uL (4.00-5.40); WHITE BLOOD COUNT 8.6 10^3/uL (4.0-10.0)
[2023-04-03 14:02] LABS: BILIRUBIN,TOTAL 0.4 MG/DL (0.3-1.2); CALCIUM LEVEL 9.5 MG/DL (8.3-10.6); CREATININE FOR GFR 1.08 MG/DL (0.55-1.30); GLOMERULAR FILTRATION RATE 54.7 (>45); LITHIUM LEVEL 0.33 MMOL/L (0.60-1.20); POTASSIUM SERUM 4.2 MMOL/L (3.5-5.1); PROLACTIN 81.42 NG/ML; TOTAL PROTEIN 6.8 G/DL (5.7-8.2)
[2023-04-03 14:03] LABS: THYROID STIMULATING HORMONE 1.183 uIU/ML (0.55-4.78); TOTAL 25(OH) VITAMIN D 22.1 NG/ML (20.0-100.0)
== END ==
LOC: M PLALAB 12:02
PROVIDERS: ATTEND Nurse Practitioner Psychiatric/Mental Health
DX: F31.9 Bipolar disorder, unspecified (principal)

== ENCOUNTER 2023-05-20 09:00 | Day surgery (SDC) | payer MEDICARE, MEDICAID ==
[~2023-05-20] VITALS: Ht 165.1 cm; Wt 74.7 kg
[~2023-05-20 09:00] MED LIST changes: +LINZ72CA PO; +NS 1,000 ML IV ONE; +OXYB-54 PO; +PALI1TAB2 PO; +PROP60CA PO
[2023-05-20] MEDS ORDERED: propofoL 200 MG/20 ML VIAL As Ordered ONE ×2 (10:06→10:33)
[2023-05-20] MEDS ORDERED: GLYCOPYRROLATE INJ 0.2 MG/ML 2 ML VIAL As Ordered ONE (10:28)
[2023-05-20] MEDS ORDERED: ePHEDrine SULFATE 25 MG/5 ML(5MG/ML) SYRINGE As Ordered ONE (10:39)
[2023-05-20 10:49] VITALS: TEMP 97.2
[2023-05-20 11:17] VITALS: BP 120/75; O2SAT 98
== END 2023-05-20 11:18 | disposition home or self-care (01) ==
LOC: M OPP 09:00
PROVIDERS: ATTEND Internal Medicine Gastroenterology
DX: Z86.010 Personal history of colon polyps (principal); K57.30 Diverticulosis of large intestine without perforation or abscess without bleeding; Z79.83 Long term (current) use of bisphosphonates; Z79.899 Other long term (current) drug therapy; Z91.040 Latex allergy status; Z91.041 Radiographic dye allergy status; Z88.2 Allergy status to sulfonamides

== ENCOUNTER → 2023-08-07 | Outpatient (CLI) | payer MEDICARE, MEDICAID ==
[~2023-08-07] MED LIST changes: -NS 1,000 ML IV ONE
== END ==
LOC: M WHC 13:01
PROVIDERS: ATTEND Student in an Organized Health Care Education/Training Program
DX: N63.24 Unspecified lump in the left breast, lower inner quadrant (principal)
CPT/HCPCS: 77066; G0279

== ENCOUNTER 2023-10-18 15:47 | Emergency (ER) | payer MEDICARE, MEDICAID ==
[~2023-10-18] VITALS: Ht 165.1 cm; Wt 79.5 kg
[2023-10-18 15:47] VITALS: BP 172/78; TEMP 97.4; O2SAT 98
[2023-10-18] MEDS ORDERED: NAPR220C23 PO (16:00)
[2023-10-18] MEDS ORDERED: METH-1164 (16:00)
[2023-10-18] MEDS ORDERED: TIZA2TA (16:00)
[2023-10-18] MEDS ORDERED: ACETAMINOPHEN 500 MG TAB PO ONE (18:15)
== END 2023-10-18 19:11 | disposition home or self-care (01) ==
LOC: M ED 15:47
DX: M47.817 Spondylosis without myelopathy or radiculopathy, lumbosacral region (principal); F41.9 Anxiety disorder, unspecified; F32.A Depression, unspecified; F29 Unspecified psychosis not due to a substance or known physiological condition; Z79.899 Other long term (current) drug therapy; Z88.2 Allergy status to sulfonamides; Z88.8 Allergy status to other drugs, medicaments and biological substances; Z91.041 Radiographic dye allergy status; Z91.040 Latex allergy status

== ENCOUNTER → 2023-11-12 | Outpatient (REF) | payer MEDICARE, MEDICAID ==
[~2023-11-12] MED LIST changes: +METH-1164; +NAPR220C23 PO; +TIZA2TA
[2023-11-12 16:41] LABS: APPEARANCE, URINE HAZY (CLEAR); BACTERIA, URINE AUTO NEGATIVE (NEGATIVE); BILIRUBIN, URINE AUTO NEGATIVE (NEGATIVE); BLOOD, URINE BLOOD 1+ (NEGATIVE); COLOR, URINE STRAW (YELLOW); GLUCOSE, URINE (UA) AUTO NEGATIVE (NEGATIVE); KETONE, URINE AUTO NEGATIVE (NEGATIVE); LEUKOCYTE ESTERASE, URINE AUTO 3+ (NEGATIVE); NITRITE, URINE AUTO NEGATIVE (NEGATIVE); PROTEIN, URINE AUTO NEGATIVE (NEGATIVE); RBC, URINE AUTO 8 /HPF (0-3); SPECIFIC GRAVITY URINE AUTO 1.005 (1.002-1.035); SQUAMOUS EPITHELIAL CELL UR AU 0 /HPF (0-6); UROBILINOGEN, URINE AUTO 0.2 mg/dL (0.0-2.0); WBC, URINE AUTO 37 /HPF (0-3)
== END ==
LOC: M LAB REF 16:13
PROVIDERS: ATTEND Physician Assistant Medical
DX: N39.0 Urinary tract infection, site not specified (principal)

== ENCOUNTER → 2023-11-29 | Outpatient (CLI) | payer MEDICARE, MEDICAID | LOC: M PLAIMG 13:19 | PROVIDERS: ATTEND Student in an Organized Health Care Education/Training Program | DX: M54.50 Low back pain, unspecified (principal); M51.36 Other intervertebral disc degeneration, lumbar region; M51.37 Other intervertebral disc degeneration, lumbosacral region; N83.202 Unspecified ovarian cyst, left side ==

== ENCOUNTER → 2023-12-20 | Outpatient (CLI) | payer MEDICARE, MEDICAID ==
[~2023-12-20] MED LIST changes: -RISP-7 PO; +RISP0.5T82 PO
== END ==
LOC: M WHC 11:29
PROVIDERS: ATTEND Student in an Organized Health Care Education/Training Program
DX: N83.202 Unspecified ovarian cyst, left side (principal)

== ENCOUNTER → 2023-12-31 | Outpatient (CLI) | payer MEDICARE, MEDICAID ==
[2023-12-31 14:18] LABS: BASO # 0.1 10^3/uL (0.0-0.2); BASO % 0.9 % (0.0-1.0); EOS # 0.2 10^3/uL (0.0-0.5); EOS % 2.3 % (0.0-3.0); HEMATOCRIT 36.4 % (36.0-47.0); HEMOGLOBIN 11.8 g/dl (12.0-15.5); LYMPH # 1.4 10^3/uL (1.5-5.0); LYMPH % 20.8 % (24.0-44.0); MEAN CORPUSCULAR HGB CONC 32.4 g/dl (32.0-36.5); MEAN CORPUSCULAR VOLUME 89.4 fl (80.0-96.0); MONO # 0.5 10^3/uL (0.0-0.8); MONO % 7.9 % (2.0-8.0); NEUTROPHILS # 4.6 10^3/uL (1.5-8.5); NEUTROPHILS % 67.7 % (36.0-66.0); PLATELET COUNT, AUTOMATED 346 10^3/uL (150-450); RED BLOOD COUNT 4.07 10^6/uL (4.00-5.40); WHITE BLOOD COUNT 6.9 10^3/uL (4.0-10.0)
[2023-12-31 15:02] LABS: ALBUMIN 3.7 G/DL (3.2-5.2); ALKALINE PHOSPHATASE 86 U/L (46-116); ALT/SGPT 12 U/L (7.0-40); AST/SGOT 9 U/L (<34); BILIRUBIN,DIRECT < 0.1 MG/DL (<0.4); BILIRUBIN,TOTAL 0.3 MG/DL (0.3-1.2); BLOOD UREA NITROGEN 14 MG/DL (9-23); CALCIUM LEVEL 9.6 MG/DL (8.3-10.6); CARBON DIOXIDE LEVEL 25 MMOL/L (20-31); CHLORIDE LEVEL 111 MMOL/L (98-107); CHOLESTEROL LEVEL 218 MG/DL (<200); CREATININE FOR GFR 1.05 MG/DL (0.55-1.30); GLOMERULAR FILTRATION RATE 56.3 (>45); GLUCOSE, FASTING 94 MG/DL (74-106); HDL CHOLESTEROL 55.8 MG/DL (>40); LDL CHOLESTEROL 131.6 MG/DL (<100); NON-HDL-C 162.2 MG/DL; PHOSPHORUS LEVEL 3.7 MG/DL (2.4-5.1); POTASSIUM SERUM 4.5 MMOL/L (3.5-5.1); SODIUM LEVEL 140 MMOL/L (136-145); TOTAL PROTEIN 6.7 G/DL (5.7-8.2); TRIGLYCERIDES LEVEL 153 MG/DL (<150)
[2023-12-31 15:03] LABS: TOTAL 25(OH) VITAMIN D 30.8 NG/ML (20.0-100.0)
[2023-12-31 15:05] LABS: THYROID STIMULATING HORMONE 1.973 uIU/ML (0.55-4.78)
[2023-12-31 15:27] LABS: LITHIUM LEVEL 0.47 MMOL/L (1.0-1.20)
== END ==
LOC: M PLALAB 11:51
PROVIDERS: ATTEND Nurse Practitioner Psychiatric/Mental Health
DX: F31.9 Bipolar disorder, unspecified (principal); E78.00 Pure hypercholesterolemia, unspecified

== ENCOUNTER → 2024-02-14 | Outpatient (CLI) | payer MEDICARE, MEDICAID ==
[2024-02-14 15:29] LABS: APPEARANCE, URINE CLEAR (CLEAR); BACTERIA, URINE AUTO NEGATIVE (NEGATIVE); BILIRUBIN, URINE AUTO NEGATIVE (NEGATIVE); BLOOD, URINE BLOOD NEGATIVE (NEGATIVE); COLOR, URINE STRAW (YELLOW); GLUCOSE, URINE (UA) AUTO NEGATIVE (NEGATIVE); KETONE, URINE AUTO NEGATIVE (NEGATIVE); LEUKOCYTE ESTERASE, URINE AUTO 2+ (NEGATIVE); NITRITE, URINE AUTO NEGATIVE (NEGATIVE); PROTEIN, URINE AUTO NEGATIVE (NEGATIVE); RBC, URINE AUTO 0 /HPF (0-3); SPECIFIC GRAVITY URINE AUTO 1.006 (1.002-1.035); SQUAMOUS EPITHELIAL CELL UR AU 0 /HPF (0-6); UROBILINOGEN, URINE AUTO 0.2 mg/dL (0.0-2.0); WBC, URINE AUTO 0 /HPF (0-3)
== END ==
LOC: M PLALAB 13:39
PROVIDERS: ATTEND Obstetrics & Gynecology
DX: N83.202 Unspecified ovarian cyst, left side (principal); D39.0 Neoplasm of uncertain behavior of uterus

== ENCOUNTER → 2024-04-20 | Outpatient (CLI) | payer MEDICARE, MEDICAID | LOC: M WHC 12:59 | PROVIDERS: ATTEND Orthopaedic Surgery | DX: S32.050A Wedge compression fracture of fifth lumbar vertebra, initial encounter for closed fracture (principal) ==

== ENCOUNTER 2024-12-06 08:56 | Emergency (ER) | payer MEDICARE, MEDICAID ==
[~2024-12-06] VITALS: Ht 165.1 cm; Wt 80.9 kg
[2024-12-06 12:07] LABS: BASO # 0.1 10^3/uL (0.0-0.2); BASO % 0.7 % (0.0-1.0); EOS # 0.3 10^3/uL (0.0-0.5); EOS % 2.8 % (0.0-3.0); HEMATOCRIT 39.1 % (36.0-47.0); LYMPH # 1.6 10^3/uL (1.5-5.0); LYMPH % 16.6 % (24.0-44.0); MEAN CORPUSCULAR HEMOGLOBIN 29.5 pg (27.0-33.0); MEAN CORPUSCULAR HGB CONC 33.2 g/dl (32.0-36.5); MEAN CORPUSCULAR VOLUME 88.9 fl (80.0-96.0); MONO # 0.8 10^3/uL (0.0-0.8); MONO % 8.3 % (2.0-8.0); NEUTROPHILS # 6.7 10^3/uL (1.5-8.5); NEUTROPHILS % 71.2 % (36.0-66.0); PLATELET COUNT, AUTOMATED 353 10^3/uL (150-450); WHITE BLOOD COUNT 9.4 10^3/uL (4.0-10.0)
[2024-12-06 14:04] VITALS: BP 142/73; TEMP 98.5; O2SAT 99
[2024-12-06] MEDS: MAGNESIUM CITRATE 300ML BTL PO ONE (14:38)
[2024-12-07] MEDS ORDERED: SIME1CAP4 PO (21:53)
== END 2024-12-06 14:43 | disposition home or self-care (01) ==
LOC: M ED 08:56
DX: K59.00 Constipation, unspecified (principal); K58.9 Irritable bowel syndrome, unspecified; F41.9 Anxiety disorder, unspecified; F31.9 Bipolar disorder, unspecified; Z88.2 Allergy status to sulfonamides; Z88.8 Allergy status to other drugs, medicaments and biological substances; Z91.040 Latex allergy status; Z91.041 Radiographic dye allergy status; Z79.899 Other long term (current) drug therapy

== ENCOUNTER 2024-12-07 15:08 | Emergency (ER) | payer MEDICARE, MEDICAID ==
[~2024-12-07] VITALS: Ht 165.1 cm; Wt 80.4 kg
[2024-12-07] MEDS ORDERED: SIME1CAP4 PO (21:53)
[2024-12-07] MEDS: SIMETHICONE 80MG CHEW TAB PO ONE (22:10)
[2024-12-07 22:24] VITALS: BP 130/74; TEMP 97.9; O2SAT 100
== END 2024-12-07 22:21 | disposition home or self-care (01) ==
LOC: M ED 15:08
DX: R19.7 Diarrhea, unspecified (principal); R10.9 Unspecified abdominal pain; Z88.8 Allergy status to other drugs, medicaments and biological substances; Z88.2 Allergy status to sulfonamides; Z91.040 Latex allergy status; Z91.041 Radiographic dye allergy status; Z79.899 Other long term (current) drug therapy

== ENCOUNTER → 2025-02-01 | Outpatient (CLI) | payer MEDICARE, MEDICAID ==
[~2025-02-01] MED LIST changes: +SIME1CAP4 PO
[2025-02-01 11:07] LABS: HEMATOCRIT 38.8 % (36.0-47.0); HEMOGLOBIN 12.6 g/dl (12.0-15.5); MEAN CORPUSCULAR HEMOGLOBIN 29.5 pg (27.0-33.0); MEAN CORPUSCULAR HGB CONC 32.5 g/dl (32.0-36.5); MEAN CORPUSCULAR VOLUME 90.9 fl (80.0-96.0); PLATELET COUNT, AUTOMATED 336 10^3/uL (150-450); RED BLOOD COUNT 4.27 10^6/uL (4.00-5.40)
[2025-02-01 11:08] LABS: APPEARANCE, URINE CLEAR (CLEAR); BACTERIA, URINE AUTO 1+ (NEGATIVE); BILIRUBIN, URINE AUTO NEGATIVE (NEGATIVE); BLOOD, URINE BLOOD NEGATIVE (NEGATIVE); COLOR, URINE STRAW (YELLOW); GLUCOSE, URINE (UA) AUTO NEGATIVE (NEGATIVE); KETONE, URINE AUTO NEGATIVE (NEGATIVE); LEUKOCYTE ESTERASE, URINE AUTO 1+ (NEGATIVE); NITRITE, URINE AUTO NEGATIVE (NEGATIVE); PROTEIN, URINE AUTO NEGATIVE (NEGATIVE); RBC, URINE AUTO 1 /HPF (0-3); SPECIFIC GRAVITY URINE AUTO 1.006 (1.002-1.035); SQUAMOUS EPITHELIAL CELL UR AU 0 /HPF (0-6); UROBILINOGEN, URINE AUTO 0.2 mg/dL (0.0-2.0); WBC, URINE AUTO 2 /HPF (0-3)
[2025-02-01 11:41] LABS: ALBUMIN 3.6 G/DL (3.2-5.2); BILIRUBIN,TOTAL 0.3 MG/DL (0.3-1.2); CALCIUM LEVEL 9.5 MG/DL (8.3-10.6); CHOLESTEROL RISK RATIO 4.15 (<5); CREATININE FOR GFR 1.08 MG/DL (0.55-1.30); GLOMERULAR FILTRATION RATE 54.4 (>45); HDL CHOLESTEROL 53.4 MG/DL (>40); LDL CHOLESTEROL 118.6 MG/DL (<100); LITHIUM LEVEL 0.3 MMOL/L (1.0-1.20); NON-HDL-C 168.6 MG/DL; POTASSIUM SERUM 4.7 MMOL/L (3.5-5.1); TOTAL PROTEIN 6.9 G/DL (5.7-8.2)
[2025-02-01 11:43] LABS: THYROID STIMULATING HORMONE 3.513 uIU/ML (0.55-4.78)
== END ==
LOC: M PLALAB 09:28
PROVIDERS: ATTEND Student in an Organized Health Care Education/Training Program
DX: F31.9 Bipolar disorder, unspecified (principal); Z13.220 Encounter for screening for lipoid disorders; Z13.1 Encounter for screening for diabetes mellitus; Z79.899 Other long term (current) drug therapy

== ENCOUNTER → 2025-03-15 | Outpatient (REF) | payer MEDICARE, MEDICAID ==
[2025-03-15 18:23] LABS: APPEARANCE, URINE CLEAR (CLEAR); BACTERIA, URINE AUTO NEGATIVE (NEGATIVE); BILIRUBIN, URINE AUTO NEGATIVE (NEGATIVE); BLOOD, URINE BLOOD NEGATIVE (NEGATIVE); COLOR, URINE YELLOW (YELLOW); GLUCOSE, URINE (UA) AUTO NEGATIVE (NEGATIVE); KETONE, URINE AUTO NEGATIVE (NEGATIVE); LEUKOCYTE ESTERASE, URINE AUTO 1+ (NEGATIVE); NITRITE, URINE AUTO NEGATIVE (NEGATIVE); PROTEIN, URINE AUTO NEGATIVE (NEGATIVE); RBC, URINE AUTO 1 /HPF (0-3); SPECIFIC GRAVITY URINE AUTO 1.008 (1.002-1.035); SQUAMOUS EPITHELIAL CELL UR AU 0 /HPF (0-6); UROBILINOGEN, URINE AUTO 0.2 mg/dL (0.0-2.0); WBC, URINE AUTO 3 /HPF (0-3)
== END ==
LOC: M SFHCPLAZ 17:03
PROVIDERS: ATTEND Student in an Organized Health Care Education/Training Program
DX: R32 Unspecified urinary incontinence (principal)

== ENCOUNTER 2025-05-19 18:24 | Emergency (ER) | payer MEDICARE, MEDICAID ==
[~2025-05-19] VITALS: Ht 165.1 cm; Wt 76.6 kg
[2025-05-19 19:32] LABS: BASO # 0.1 10^3/uL (0.0-0.2); BASO % 0.9 % (0.0-1.0); EOS # 0.2 10^3/uL (0.0-0.5); EOS % 2.4 % (0.0-3.0); LYMPH # 2.1 10^3/uL (1.5-5.0); LYMPH % 31.5 % (24.0-44.0); MONO # 0.6 10^3/uL (0.0-0.8); MONO % 8.7 % (2.0-8.0); NEUTROPHILS # 3.8 10^3/uL (1.5-8.5); NEUTROPHILS % 56.2 % (36.0-66.0); PLATELET COUNT, AUTOMATED 351 10^3/uL (150-450)
[2025-05-19 20:00] LABS: CALCIUM LEVEL 10.3 MG/DL (8.3-10.6); CARBON DIOXIDE LEVEL 23 MMOL/L (20-31); CHLORIDE LEVEL 105 MMOL/L (98-107); CREATININE FOR GFR 1.25 MG/DL (0.55-1.30); GLOMERULAR FILTRATION RATE 48.1 (>45); POTASSIUM SERUM 4.5 MMOL/L (3.5-5.1); SODIUM LEVEL 142 MMOL/L (136-145)
[2025-05-19 22:16] LABS: ALT/SGPT 17 U/L (7.0-40); AST/SGOT 20 U/L (<34); MAGNESIUM LEVEL 2.0 MG/DL (1.8-2.4)
[2025-05-19 22:35] LABS: KETONE, URINE AUTO RFX NEGATIVE (NEGATIVE); NITRITE, URINE AUTO RFX NEGATIVE (NEGATIVE); RBC, URINE AUTO RFX 4 /HPF (0-3); SQUAM EPITHELIAL CELL UR AURFX 0 /HPF (0-6)
[2025-05-19 22:43] LABS: LEUKOCYTE ESTERASE UR AUTO RFX 3+ (NEGATIVE); WBC, URINE AUTO RFX 12 /HPF (0-3)
[2025-05-20] MEDS ORDERED: CEFD300C PO (00:26)
[2025-05-20] MEDS: CEFDINIR 300 MG CAP PO ONE (00:53)
[2025-05-20] MEDS: NS 500 ML IV ONE (00:53)
[2025-05-20 01:33] VITALS: TEMP 97
[2025-05-20 01:34] VITALS: BP 151/72; O2SAT 100
== END 2025-05-20 01:43 | disposition home or self-care (01) ==
LOC: M ED 18:24
DX: I95.1 Orthostatic hypotension (principal); N39.0 Urinary tract infection, site not specified; F31.9 Bipolar disorder, unspecified; Z88.2 Allergy status to sulfonamides; Z88.8 Allergy status to other drugs, medicaments and biological substances; Z91.040 Latex allergy status; Z91.041 Radiographic dye allergy status; Z79.2 Long term (current) use of antibiotics; Z79.899 Other long term (current) drug therapy

== ENCOUNTER → 2025-05-31 | Outpatient (REF) | payer MEDICARE, MEDICAID ==
[~2025-05-31] MED LIST changes: +CEFD300C PO
[2025-05-31 22:15] LABS: APPEARANCE, URINE CLEAR (CLEAR); BACTERIA, URINE AUTO NEGATIVE (NEGATIVE); BILIRUBIN, URINE AUTO NEGATIVE (NEGATIVE); BLOOD, URINE BLOOD NEGATIVE (NEGATIVE); GLUCOSE, URINE (UA) AUTO NEGATIVE (NEGATIVE); KETONE, URINE AUTO NEGATIVE (NEGATIVE); LEUKOCYTE ESTERASE, URINE AUTO 2+ (NEGATIVE); NITRITE, URINE AUTO NEGATIVE (NEGATIVE); PROTEIN, URINE AUTO NEGATIVE (NEGATIVE); RBC, URINE AUTO 1 /HPF (0-3); SPECIFIC GRAVITY URINE AUTO 1.006 (1.002-1.035); SQUAMOUS EPITHELIAL CELL UR AU 0 /HPF (0-6); UROBILINOGEN, URINE AUTO 0.2 mg/dL (0.0-2.0); WBC, URINE AUTO 9 /HPF (0-3)
== END ==
LOC: M LAB REF 21:41
DX: N39.0 Urinary tract infection, site not specified (principal)

== ENCOUNTER → 2025-06-08 | Outpatient (CLI) | payer MEDICARE, MEDICAID | LOC: M PLALAB 15:13 | PROVIDERS: ATTEND Student in an Organized Health Care Education/Training Program | DX: G62.9 Polyneuropathy, unspecified (principal) ==

== ENCOUNTER → 2025-06-30 | Outpatient (CLI) | payer MEDICARE, MEDICAID ==
[2025-06-30 10:55] LABS: APPEARANCE, URINE CLEAR (CLEAR); BACTERIA, URINE AUTO NEGATIVE (NEGATIVE); BILIRUBIN, URINE AUTO NEGATIVE (NEGATIVE); BLOOD, URINE BLOOD 1+ (NEGATIVE); GLUCOSE, URINE (UA) AUTO NEGATIVE (NEGATIVE); KETONE, URINE AUTO NEGATIVE (NEGATIVE); LEUKOCYTE ESTERASE, URINE AUTO NEGATIVE (NEGATIVE); NITRITE, URINE AUTO NEGATIVE (NEGATIVE); PROTEIN, URINE AUTO NEGATIVE (NEGATIVE); RBC, URINE AUTO 0 /HPF (0-3); SPECIFIC GRAVITY URINE AUTO 1.003 (1.002-1.035); SQUAMOUS EPITHELIAL CELL UR AU 0 /HPF (0-6); UROBILINOGEN, URINE AUTO 0.2 mg/dL (0.0-2.0); WBC, URINE AUTO 0 /HPF (0-3)
[2025-06-30 11:02] LABS: BASO # 0.1 10^3/uL (0.0-0.2); BASO % 1.0 % (0.0-1.0); EOS # 0.2 10^3/uL (0.0-0.5); EOS % 2.4 % (0.0-3.0); LYMPH # 1.8 10^3/uL (1.5-5.0); LYMPH % 26.7 % (24.0-44.0); MONO # 0.8 10^3/uL (0.0-0.8); MONO % 12.4 % (2.0-8.0); NEUTROPHILS # 3.9 10^3/uL (1.5-8.5); NEUTROPHILS % 57.2 % (36.0-66.0); PLATELET COUNT, AUTOMATED 370 10^3/uL (150-450)
[2025-06-30 11:04] LABS: CALCIUM LEVEL 9.7 MG/DL (8.3-10.6); CARBON DIOXIDE LEVEL 23.0 MMOL/L (20-31); CHLORIDE LEVEL 108.0 MMOL/L (98-107); CREATININE FOR GFR 1.12 MG/DL (0.55-1.30); GLOMERULAR FILTRATION RATE 54.9 (>45); PHOSPHORUS LEVEL 4.2 MG/DL (2.4-5.1); POTASSIUM SERUM 4.1 MMOL/L (3.5-5.1); SODIUM LEVEL 143.0 MMOL/L (136-145)
[2025-06-30 11:07] LABS: VITAMIN B12 LEVEL 469.0 PG/ML (211-911)
[2025-06-30 15:12] LABS: TOTAL PROTEIN,RANDOM URINE < 6.0 MG/DL (0.0-14.0)
== END ==
LOC: M PLALAB 07:55
PROVIDERS: ATTEND Student in an Organized Health Care Education/Training Program
DX: N18.31 Chronic kidney disease, stage 3a (principal); G62.9 Polyneuropathy, unspecified